=== PATIENT | male | born 1970 | race Caucasian/White ===

== ENCOUNTER → 2017-10-28 | Outpatient (CLI) | payer OTHER ==
[2017-10-28 09:34] LABS: Basophils # (A) 0.1 k/uL (0-0.2); Basophils % (A) 1 %; Eosinophils # (A) 0.3 k/uL (0-0.7); Eosinophils % (A) 3 %; HCT 48.9 % (39.0-53.0); HGB 15.9 gm/dL (13.0-17.5); Lymphocytes # (A) 2.4 k/uL (1.0-4.8); Lymphocytes % (A) 26 %; MCH 29.8 pg (25.0-35.0); MCHC 32.6 g/dL (31.0-37.0); MCV 91.2 fL (80.0-100.0); Mean Platelet Volume 7.1; Monocytes # (A) 0.7 k/uL (0-1.0); Monocytes % (A) 7 %; Neutrophils # (A) 5.7 k/uL (1.3-7.7); Neutrophils % (A) 60 %; Platelet Count 258 k/uL (150-450); RBC 5.36 m/uL (4.30-5.90); RDW 12.7 % (11.5-15.5); WBC 9.4 k/uL (3.8-10.6)
== END | disposition home or self-care (01) ==
LOC: LABWHC1 08:57
PROVIDERS: ATTEND Specialist
DX: J45.909 Unspecified asthma, uncomplicated (principal)
CPT/HCPCS: 36415; 85025

== ENCOUNTER 2018-07-08 13:00 | Emergency (ER) | payer OTHER ==
[2018-07-08 13:08] VITALS: PULSE 90
--- NOTE | 2018-07-08 13:52 | ED ---
General Adult HPI - General Chief complaint: Skin/Abscess/Foreign Body Stated complaint: Abn labs Time Seen by Provider: 07/08/18 13:12 Source: patient Mode of arrival: ambulatory Limitations: no limitations - History of Present Illness Initial comments: Patient is a 48-year-old male presents emergency department for a rash. Patient states the rash started yesterday and has progressively gotten worse. Patient states rash is only limited to his trunk and upper extremities. Patient states the rash does not itch. Today he went to a [place] urgent care location where he received a shot of Decadron and urinalysis was obtained showing abnormal results. Patient was sent from the urgent care to the emergency department. Patient denies fever, nausea, vomiting, diarrhea. Patient also denies any blood in the urine, dysuria, urgency. - Related Data Previous Rx's Medication Instructions Recorded methylPREDNISolone [Medrol Dose 4 mg PO DIRECTED #1 pack 07/08/18 Pack] Allergies Allergy/AdvReac Type Severity Reaction Status Date / Time No Known Allergies Allergy Verified 07/08/18 13:08 Review of Systems ROS Statement: Those systems with pertinent positive or pertinent negative responses have been documented in the HPI. ROS Other: All systems not noted in ROS Statement are negative. Past Medical History Past Medical History: No Reported History History of Any Multi-Drug Resistant Organisms: None Reported Additional Past Surgical History / Comment(s): Sinus surgery Past Psychological History: No Psychological Hx Reported Smoking Status: Former smoker Past Alcohol Use History: None Reported Past Drug Use History: None Reported General Exam Limitations: no limitations General appearance: alert, in no apparent distress Head exam: Present: atraumatic, normocephalic, normal inspection Eye exam: Present: normal appearance, PERRL, EOMI. Absent: scleral icterus Pupils: Present: normal accommodation ENT exam: Present: normal exam Neck exam: Present: normal inspection (No rash) Respiratory exam: Present: normal lung sounds bilaterally. Absent: wheezes, rales, rhonchi, stridor Cardiovascular Exam: Present: regular rate, normal rhythm, normal heart sounds GI/Abdominal exam: Present: soft, normal bowel sounds. Absent: tenderness Neurological exam: Present: alert, oriented X3 Psychiatric exam: Present: normal affect, normal mood Skin exam: Present: warm, rash (Maculopapular rash on trunk and bilateral upper extremities). Absent: cyanosis, diaphoretic, petechiae Course Vital Signs 07/08/18 13:06 Temperature 98.8 F Pulse Rate 90 Respiratory 16 Rate Blood Pressure 129/87 O2 Sat by Pulse 99 Oximetry Medical Decision Making - Medical Decision Making Patient is a 48-year-old male presenting to emergency Department for a rash. Patient was sent to the emergency department from the [facility] urgent care after an abnormal urinalysis. A new urinalysis was obtained while at the emergency department. UA is positive for glucose and protein. Patient advised to follow-up with his primary care regarding the abnormal UA results. Patient will be discharged with a Medrol Dosepak for the rash. Patient also advised to take Benadryl twice a day for the first 3 days. Patient advised to return to emergency department if symptoms worsen. Case discussed with physician. - Lab Data Lab Results 07/08/18 Range/Units 13:47 Urine Color Yellow Urine Appearance Clear (Clear) Urine pH 5.5 (5.0-8.0) Ur Specific [place] 1.042 H (1.001-1.035) Urine Protein 1+ H (Negative) Urine Glucose (UA) 1+ H (Negative) Urine Ketones 1+ H (Negative) Urine Blood Trace H (Negative) Urine Nitrite Negative (Negative) Urine Bilirubin Negative (Negative) Urine Urobilinogen <2.0 (<2.0) mg/dL Ur Leukocyte Esterase Negative (Negative) Urine RBC 1 (0-5) /hpf Urine WBC 1 (0-5) /hpf Ur Squamous Epith Cells <1 (0-4) /hpf Amorphous Sediment Rare H (None) /hpf Hyaline Casts 1 (0-2) /lpf Urine Mucus Many H (None) /hpf Disposition Clinical Impression: Viral exanthem Disposition: HOME SELF-CARE Condition: Stable Instructions (If sedation given, give patient instructions): Viral Exanthem (ED) Additional Instructions: Please take medications as prescribed. Please follow with primary care regarding the abnormal urinalysis results. Please return to emergency department if symptoms worsen. Prescriptions: methylPREDNISolone [Medrol Dose Pack] 4 mg PO DIRECTED #1 pack Is patient prescribed a controlled substance at d/c from ED?: No Referrals: Jerry Zambrano MD [Primary Care Provider] - 1-2 days Time of Disposition: 15:20
[2018-07-08 14:51] LABS: Amorphous Sediment,Urine Rare /hpf; Appearance,Urine Clear (Clear); Bilirubin,Urine Negative (Negative); Blood,Urine Trace (Negative); Color,Urine Yellow; Glucose,Urine (UA) 1+ (Negative); Hyaline Casts,Urine 1 /lpf (0-2); Ketones,Urine 1+ (Negative); Leukocyte Esterase,Urine Negative (Negative); Mucus,Urine Many /hpf; Nitrite,Urine Negative (Negative); PH, Urine 5.5 (5.0-8.0); Protein,Urine 1+ (Negative); RBC,Urine 1 /hpf (0-5); Specific Gravity,Urine 1.042 (1.001-1.035); Squamous Epithelial Cell,Urine <1 /hpf (0-4); Urobilinogen,Urine <2.0 mg/dL (<2.0); WBC,Urine 1 /hpf (0-5)
[2018-07-08 15:32] VITALS: BP 127/89; RESP 18; TEMP 98.1
== END 2018-07-08 15:31 | disposition home or self-care (01) ==
LOC: EC 13:00
DX: B09 Unspecified viral infection characterized by skin and mucous membrane lesions (principal); Z87.891 Personal history of nicotine dependence
CPT/HCPCS: 81001; 99283

== ENCOUNTER 2018-11-09 08:37 | Day surgery (SDC) | payer OTHER ==
[2018-11-07 17:35] VITALS: BMI 31.0
[~2018-11-09 08:37] MED LIST: LACTATED RINGERS 1,000 ML IV SCH; LIDOCAINE 1% 20 ML VIAL (10MG/ML) FOR IV START INTRADERMA PRN
[2018-11-09 09:18] VITALS: RESP 16; TEMP 98.3
[2018-11-09] MEDS ORDERED: PROPOFOL 10 MG/ML 20 ML VIAL IV ONE (10:01)
--- NOTE | 2018-11-09 10:16 | P.PCN ---
Date of Procedure: 11/09/18 Procedure(s) Performed: BRIEF HISTORY: Patient is a 48-year-old pleasant male scheduled for an elective colonoscopy as a part of screening for colorectal neoplasia. PROCEDURE PERFORMED: Colonoscopy snare polypectomy. PREOPERATIVE DIAGNOSIS: Screening for colon cancer. IV sedation per Anesthesia. PROCEDURE: After informed consent was obtained, the patient, was brought into the endoscopy unit. IV sedation was administered by Anesthesia under continuous monitoring. Digital rectal examination was normal. Initially the Olympus CF-160 flexible video colonoscope was then inserted in the rectum, gradually advanced into the cecum without any difficulty. Careful examination was performed as the scope was gradually being withdrawn. Ileocecal valve and the appendiceal orifice were visualized and appeared normal. Prep was excellent. Mucosa of the cecum, appeared normal. In the ascending colon there was a 1 cm sessile polyp that was removed by snare polypectomy. Rest of the ascending colon, transverse colon, descending colon, sigmoid colon, and rectum appeared normal. The distal rectum there was a 2-3 mm sessile polyp that was removed by snare polypectomy. Retroflexion was performed in the rectum and no lesions were seen. The patient tolerated the procedure well. IMPRESSION: 1 cm sessile ascending colon polyp status post polypectomy 2-3 mm distal rectal polyp status post snare polypectomy RECOMMENDATIONS: Findings of this examination were discussed with the patient well as his family. He was advised to follow with the biopsy results. If the biopsy shows an adenoma he can have a repeat colonoscopy in 3-5 years.
[2018-11-09 10:41] VITALS: BP 123/79; PULSE 97
== END 2018-11-09 10:45 | disposition home or self-care (01) ==
LOC: ORWHC2ENDO 08:37
PROVIDERS: ATTEND Internal Medicine Gastroenterology
DX: Z12.11 Encounter for screening for malignant neoplasm of colon (principal); D12.2 Benign neoplasm of ascending colon; K62.1 Rectal polyp; I10 Essential (primary) hypertension; J44.9 Chronic obstructive pulmonary disease, unspecified; Z87.891 Personal history of nicotine dependence; Z79.1 Long term (current) use of non-steroidal anti-inflammatories (NSAID); Z79.899 Other long term (current) drug therapy; Z79.52 Long term (current) use of systemic steroids
CPT/HCPCS: 88305; 45385; J2704

== ENCOUNTER → 2019-08-28 | Outpatient (CLI) | payer OTHER ==
--- NOTE | 2019-08-28 22:55 | CONS ---
CONSULTATION DATE OF SERVICE: 08/28/2019 This patient is a 49-year-old gentleman who has been evaluated in the sleep center for possible obstructive sleep apnea-hypopnea syndrome. HISTORY OF PRESENT ILLNESS/SLEEP-WAKE EVALUATION: Patient's usual sleep schedule is from 9 p.m. to 5 a.m. on weekdays and from 10 p.m. to 7 a.m. on weekends. He usually have problems with falling asleep. No TV in bedroom. He usually sleeps on the side position with his . According to her, he has very loud snoring and he wakes up from sleep with episodes of palpitation and nocturia up to 5 times at night. In the morning he wakes up tired. Sometimes he is sleepy during the day, especially after noon. [place] Sleepiness Scale is 10. PAST MEDICAL HISTORY: Past medical history is positive for hypertension, sinusitis, headaches. PAST SURGICAL HISTORY: Sinus surgery. MEDICATIONS: Lipitor, metoprolol, Lotrel, Symbicort. SOCIAL HISTORY: Positive history of smoking about half pack a day for many years; quit in 2014. Alcohol consumption occasional. FAMILY HISTORY: Heart problems in his father. REVIEW OF SYSTEMS: Multiple awakenings from sleep. Sleepiness during the day. PHYSICAL EXAMINATION: GENERAL: A pleasant gentleman without distress. VITAL SIGNS: BP 141/72, HR 86, RR 15, height 5 feet 9 inches, weight 213, body mass index 31.4, temperature 97.9, oxygen saturation at room air 97%. HEENT: PERRLA, EOMI. Evaluation of oropharynx showed tongue protrudes midline. Extremely low position of soft palate. Mallampati IV. NECK: Supple. No JVD. Thyroid is not palpable. Wide neck; 19 inches in circumference. LUNGS: Clear to percussion and to auscultation. Good air exchange. No wheezing or rhonchi. HEART: S1, S2 regular. No murmurs, gallops or rubs. ABDOMEN: Obese. EXTREMITIES: No clubbing or cyanosis. FERTILIZER LOADER: Awake, alert, and oriented X3. Cranial nerves 2 to 7 intact. There is no fasciculation or atrophy. noted. No focal deficits observed. IMPRESSION: 1. Loud snoring, multiple awakenings from sleep with nocturia, low position of soft palate, small oropharyngeal air space, wide neck, sleepiness, [place] Sleepiness Scale 10; obstructive sleep apnea-hypopnea syndrome. 2. Hypertension. 3. Obesity. BMI 31.4. 4. Sinusitis. 5. History of headaches. 6. Status post sinus surgery. PLAN: 1. Polysomnography for evaluation of patient's breathing during sleep. 2. CPAP/BiPAP titration if sleep study confirms obstructive sleep apnea-hypopnea syndrome. 3. Preferable position during sleep on the side. 4. No driving if patient feels any sleepiness. 5. I will see patient for follow up visit to explain results of testing and following plan. Thank you very much for referring this patient for consultation. Sincerely, Eusebio Knowles MD, PhD, FAASM Diplomat of [place] [employer] [employer] Technology Instructor of [facility] [place] MMORACIOL / STEPHANI: [id number] /
== END | disposition home or self-care (01) ==
LOC: SLEEP 14:13
PROVIDERS: ATTEND Internal Medicine
DX: G47.33 Obstructive sleep apnea (adult) (pediatric) (principal); I10 Essential (primary) hypertension; E66.9 Obesity, unspecified; J32.9 Chronic sinusitis, unspecified; Z68.31 Body mass index [BMI] 31.0-31.9, adult; Z86.69 Personal history of other diseases of the nervous system and sense organs; Z98.890 Other specified postprocedural states; Z87.891 Personal history of nicotine dependence; Z79.51 Long term (current) use of inhaled steroids; Z79.899 Other long term (current) drug therapy
CPT/HCPCS: 99211

== ENCOUNTER → 2020-06-04 | Outpatient (CLI) | payer OTHER ==
--- NOTE | 2020-06-05 06:10 | SFUN ---
SLEEP CENTER FOLLOW UP NOTE DATE OF SERVICE: 06/04/2020 INTERVAL HISTORY: A 50-year-old gentleman who has been followed in Sleep Center for treatment of obstructive sleep apnea-hypopnea syndrome. Recently, patient had a home sleep apnea test which showed obstructive sleep apnea- hypopnea syndrome with apnea-hypopnea index 27.4, and oxygen desaturation to 80%. I discussed results of sleep study with patient in detail. He was started on treatment with CPAP and today is his first visit on treatment without the PAP. Patient experiencing difficulties with the machine. He has problems with his sinuses, sometimes has discharge from his nose. [place] Sleepiness Scale today is 9. I checked CPAP unit. Range of the pressure of 5-15 with average pressure is 13.2. The patient used it 11 nights out of 30 nights and 5 nights out of 30 nights for more than 4 hours with average usage 4.1 hours per night. Leak is 29 L/minute. Apnea-hypopnea index is 8 and humidity is a level of 2. CURRENT MEDICATIONS: Lipitor, metoprolol, Lotrel, Symbicort. PHYSICAL EXAMINATION: GENERAL: Patient in no distress. VITAL SIGNS: BP 164/81, HR 95, RR 16, oxygen saturation at room air 96%. Weight 212 pounds. Temp 97.6. HEENT: PERRLA, EOMI. Oropharynx with extremely low position of soft palate. Mallampati IV. NECK: Supple, no JVD. Thyroid is not palpable. LUNGS: Clear to percussion and to auscultation. Good air exchange. No wheezing or rhonchi. HEART: S1, S2 regular. No murmurs, gallops, or rubs. ABDOMEN: Obese, soft and nontender. Bowel sounds are present. No organomegaly appreciated. EXTREMITIES: No clubbing or cyanosis. PSYCHOLOGICAL ASSISTANT: Awake, alert, and oriented X3. Cranial nerves 2 to 7 intact. There is no fasciculation or atrophy. noted. No focal deficits observed. IMPRESSION: 1. Moderate, close to severe obstructive sleep apnea/hypopnea syndrome. The patient has difficulties without the PAP, has problems with the nose. 2. Hypertension. 3. Obesity. 4. History of sinusitis. 5. History of headaches. 6. Status post sinus surgery. PLAN: 1. I decreased pressure in the machine to the range of pressure 5-15 to be sure the patient will be more comfortable with the machine. 2. I discussed with the patient how to adjust humidity level. He will increase level of humidity. 3. The patient should use equipment every night for the whole night. 4. Losing weight. 5. Sleep hygiene with regular time in bed for 7-1/2 to 8 hours. 6. No driving if feeling any sleepiness. 7. Follow-up visit in 2 months. Thank you very much for allowing me to participate in the management of your patient. Sincerely, Eusebio Knowles MD, PhD, FAASM Diplomat of [place] [employer] Technical Training Instructor of [facility] [place] MMODL / IJN: [id number] /
== END | disposition home or self-care (01) ==

== ENCOUNTER → 2020-09-17 | Outpatient (CLI) | payer OTHER ==
--- NOTE | 2020-09-18 07:43 | SFUN ---
SLEEP CENTER FOLLOW UP NOTE DATE OF SERVICE: 09/17/2020 INTERVAL HISTORY: This is a 50-year-old gentleman who has been followed in Sleep Center for treatment of obstructive sleep apnea-hypopnea syndrome. The patient is able to use machine practically every night, but he continues to have some discomfort related to his sinuses. [place] Sleepiness Scale is 6. I checked his CPAP unit. Range of the pressure 5-15, average pressure 14.6, usage is 25/30 nights and 19/30 nights for more than 4 hours, average 5.8 hours per night. Leak is 24 L/minute. Apnea-hypopnea index is 7.0. The patient had questions about the humidity and we discussed adjustments of humidifier and the temperature in the tube in detail. MEDICATIONS: Amlodipine 10 mg once a day. Benazepril 10 mg once a day. Lipitor 20 mg once a day. Metoprolol extended release 50 mg once a day. PHYSICAL EXAMINATION: GENERAL: Patient in no distress. VITAL SIGNS: BP 145/90, HR 97, RR 16, height 5 feet 9 inches, weight 213.8, temperature is 97.4, oxygen saturation at room air 94%, body mass index 31.4. HEENT: PERRLA, EOMI, evaluation of oropharynx showed tongue protrudes midline. Extremely low position of soft palate, Mallampati 4. NECK: Supple, no JVD. Thyroid is not palpable. LUNGS: Clear to percussion and to auscultation. Good air exchange. No wheezing or rhonchi. HEART: S1, S2 regular. No murmurs, gallops, or rubs. ABDOMEN: Soft and nontender. Bowel sounds are present. No organomegaly appreciated. EXTREMITIES: No clubbing or cyanosis. SAUSAGE COOKER: Awake, alert, and oriented X3. Cranial nerves 2 to 7 intact. There is no fasciculation or atrophy. noted. No focal deficits observed. IMPRESSION: 1. Moderate close to severe obstructive sleep apnea-hypopnea syndrome. Apnea-hypopnea index during sleep study 27.4 with oxygen saturation to 80%. The patient demonstrated borderline compliance with the treatment now. Apnea-hypopnea index has decreased to the level of 6-7 per hour. 2. Mild obesity BMI 31.4. 3. Hypertension. 4. History of sinusitis. 5. History of headaches. 6. Status post sinus surgery. PLAN: PLAN 1. Patient will continue to use PAP equipment every night for the whole night. The patient will adjust level of humidity in the machine for the maximal comfort for him. I explained to him how to adjust humidity level and temperature in the tube in detail. 2. Sleep hygiene with regular time in bed for at least 7-1/2 to 8 hours. 3. Precautions related to driving. No driving if feeling sleepiness. 4. I will maintain all necessary prescription for PAP supplies including mask, tube, filters. 5. Watching weight. 6. Follow-up visit in 6 months or earlier if patient has any problems. Thank you very much for allowing me to participate in the management of your patient. Sincerely, Eusebio Knowles MD, PhD, FAASM Diplomat of [place] [employer] Sleep Medicine Board of [place] [employer] Dairy Scientist of [facility] [place] BLADIMIR / STEPHANI: [id number] /
== END ==
LOC: SLEEP 11:15
PROVIDERS: ATTEND Internal Medicine
DX: G47.33 Obstructive sleep apnea (adult) (pediatric) (principal); E66.9 Obesity, unspecified; I10 Essential (primary) hypertension; Z68.31 Body mass index [BMI] 31.0-31.9, adult; Z87.09 Personal history of other diseases of the respiratory system; Z98.890 Other specified postprocedural states; Z87.898 Personal history of other specified conditions; Z79.899 Other long term (current) drug therapy; Z87.891 Personal history of nicotine dependence

== ENCOUNTER → 2020-11-23 | Outpatient (CLI) | payer OTHER ==
--- NOTE | 2020-11-23 08:12 | US ---
EXAMINATION TYPE: US abdomen complete DATE OF EXAM: 11/23/2020 COMPARISON: NONE CLINICAL HISTORY: R74.8 Elevated liver enzymes. EXAM MEASUREMENTS: Liver Length: 19.8 cm Gallbladder Wall: 0.1 cm CBD: 0.3 cm Spleen: 10.1 cm Right Kidney: 12.2 x 4.5 x 4.9 cm Left Kidney: 13.8 x 6.3 x 5.0 cm Pancreas: Obscured by bowel gas Liver: Increased attenuation, poor visualization of vessels suggestive of fatty infiltrate, hepatome padmaja Gallbladder: wnl Evidence for sonographic Alfaro's sign: no CBD: wnl Spleen: wnl Right Kidney: wnl Left Kidney: cyst visualized lateral measuring 2.3 x 2.2 x 2.5cm Upper IVC: wnl Abd Aorta: Obscured by overlying bowel gas The intrahepatic portion of the IVC and proximal abdominal aorta are within normal limits. There is no evidence of cholelithiasis. Common bile duct is unremarkable. The visualized portions of the zuluaga creas are homogenous. The spleen is unremarkable. Kidneys are symmetric and free of hydronephrosis. IMPRESSION: 1. Hepatomegaly with hepatic steatosis 2. Renal cyst
== END | disposition home or self-care (01) ==
LOC: RADUSWWP 07:24
PROVIDERS: ATTEND Internal Medicine
DX: K76.0 Fatty (change of) liver, not elsewhere classified (principal); R16.0 Hepatomegaly, not elsewhere classified; N28.1 Cyst of kidney, acquired
CPT/HCPCS: 76700